=== PATIENT | male | born 1965 | race Two or more races ===

== ENCOUNTER 2017-05-28 04:34 | Emergency (ER) | payer MEDICAID ==
[~2017-05-28] VITALS: Ht 157.5 cm; Wt 66.0 kg
[2017-05-28] MEDS ORDERED: CLONIDINE 0.1MG TABLET PO ONE (09:30)
[2017-05-28] MEDS ORDERED: MORPHINE SULFATE 10 MG/ML CPJ IM ONE (09:30)
[2017-05-28] MEDS ORDERED: ONDANSETRON 4MG ODT PO ONE (09:30)
[2017-05-28 11:45] VITALS: BP 159/81
== END 2017-05-28 11:17 | disposition home or self-care (01) ==
LOC: ER 04:34
DX: S40.011A Contusion of right shoulder, initial encounter (principal); I16.0 Hypertensive urgency; I10 Essential (primary) hypertension; E11.9 Type 2 diabetes mellitus without complications; W19.XXXA Unspecified fall, initial encounter; Y93.89 Activity, other specified; Y99.8 Other external cause status; Y92.89 Other specified places as the place of occurrence of the external cause
CPT/HCPCS: 73030; 96372; 99284; J2270; Q0162

== ENCOUNTER 2018-02-20 14:49 | Emergency (ER) | payer MEDICAID ==
[~2018-02-20] VITALS: Ht 160 cm; Wt 65.0 kg
[2018-02-20] MEDS ORDERED: CLONIDINE 0.2MG TABLET PO ONE (21:30)
[2018-02-20 22:05] LABS: BASOPHILS % 0.6 % (0.0-2.0); EOSINOPHILS % 2.2 % (0.0-5.0); HEMATOCRIT. 29.6 % (42.0-52.0); HEMOGLOBIN. 10.1 g/dL (14.0-18.0); LYMPHOCYTES % 16.4 % (20.0-50.0); MEAN CORPUSCULAR HEMOGLOBIN 29.6 pg (28.0-32.0); MEAN CORPUSCULAR VOLUME 86.9 fL (80.0-94.0); MEAN PLATELET VOLUME 7.1 fl (7.4-10.4); NEUTROPHILS % 74.8 % (40.0-76.0); PLATELET 405 x1000/uL (130-400); RED CELL DISTRIBUTION WIDTH 13.1 % (11.6-14.6)
[2018-02-20 22:12] LABS: CHLORIDE 105 mEq/L (98-107)
[2018-02-20 22:16] LABS: ETHANOL BLOOD < 10 mg/dL
[2018-02-20 23:43] VITALS: BP 133/72
== END 2018-02-20 23:50 | disposition home or self-care (01) ==
LOC: ER 16:56
DX: N28.9 Disorder of kidney and ureter, unspecified (principal); E11.65 Type 2 diabetes mellitus with hyperglycemia; R79.89 Other specified abnormal findings of blood chemistry; I10 Essential (primary) hypertension
CPT/HCPCS: 36415; 80053; 82962; 83880; 84484; 85025; 93005; 99285; G0482; Z7610

== ENCOUNTER 2018-03-14 20:50 | Inpatient (IN) | payer MEDICAID ==
[~2018-03-14] VITALS: Ht 157.5 cm; Wt 66.2 kg
[2018-03-14 22:52] LABS: BASOPHILS % 0.9 % (0.0-2.0); EOSINOPHILS % 3.5 % (0.0-5.0); HEMATOCRIT. 26.9 % (42.0-52.0); HEMOGLOBIN. 9.5 g/dL (14.0-18.0); LYMPHOCYTES % 13.9 % (20.0-50.0); MEAN CORPUSCULAR VOLUME 87.6 fL (80.0-94.0); MEAN PLATELET VOLUME 7.1 fl (7.4-10.4); MONOCYTES % 7.7 % (2.0-8.0); PLATELET 403 x1000/uL (130-400); RED BLOOD CELL COUNT 3.07 mill/uL (4.7-6.1); RED CELL DISTRIBUTION WIDTH 12.8 % (11.6-14.6)
[2018-03-14 23:01] LABS: D-DIMER 0.33 mg/L FEU (<0.50); PROTHROMBIN TIME 9.6 sec (9.1-11.1)
[2018-03-14 23:03] LABS: CHLORIDE 105 mEq/L (98-107)
[2018-03-14 23:11] LABS: CLARITY URINE CLEAR (CLEAR); COLOR URINE YELLOW (YELLOW); KETONES URINE NEGATIVE (NEGATIVE); LEUKOCYTE ESTERASE URINE NEGATIVE (NEGATIVE); NITRITE URINE NEGATIVE (NEGATIVE); OCCULT BLOOD URINE NEGATIVE (NEGATIVE); PH URINE 6.5 (4.5-8.0); PROTEIN URINE 2+ (NEGATIVE); SPECIFIC GRAVITY URINE 1.012 (1.005-1.030); UROBILINOGEN URINE 0.2 E.U./dL (0.2-1.0)
[2018-03-14] MEDS ORDERED: ASPIRIN 81MG TABLET PO ONE (23:30)
[2018-03-14] MEDS ORDERED: SODIUM CHLORIDE 0.9% 1,000 ML IV SCH (23:53)
[2018-03-15] MEDS ORDERED: ONDANSETRON HCL 4MG/2ML INJ IV PRN
[2018-03-15] MEDS ORDERED: IPRATROPIUM/ALBUTEROL 0.5-3(2.5)MG/3ML NEB INH PRN
[2018-03-15] MEDS ORDERED: HYDROCODONE/ACETAMINOPHEN 5/325MG TABLET PO PRN
[2018-03-15] MEDS ORDERED: DOCUSATE SODIUM 100MG CAPSULE PO PRN
[2018-03-15] MEDS ORDERED: CLONIDINE 0.1MG TABLET PO PRN
[2018-03-15] MEDS ORDERED: ACETAMINOPHEN 325MG TABLET PO PRN
[2018-03-15 06:26] LABS: BASOPHILS % 0.9 % (0.0-2.0); EOSINOPHILS % 4.1 % (0.0-5.0); HEMATOCRIT. 27.6 % (42.0-52.0); HEMOGLOBIN. 9.7 g/dL (14.0-18.0); MEAN CORPUSCULAR HEMOGLOBIN 30.6 pg (28.0-32.0); MEAN CORPUSCULAR VOLUME 87.5 fL (80.0-94.0); MEAN PLATELET VOLUME 7.7 fl (7.4-10.4); MONOCYTES % 5.9 % (2.0-8.0); NEUTROPHILS % 74.1 % (40.0-76.0); PLATELET 412 x1000/uL (130-400); RED BLOOD CELL COUNT 3.16 mill/uL (4.7-6.1); RED CELL DISTRIBUTION WIDTH 12.9 % (11.6-14.6)
[2018-03-15 06:43] LABS: CREATINE KINASE 121 IU/L (39-308); CREATINE KINASE MB FRACTION < 1.0 ng/mL (0.5-3.6); HDL CHOLESTEROL 31 mg/dL (40-59); LDL CHOLESTEROL 47 mg/dL (5-100)
[2018-03-15] MEDS ORDERED: DEXTROSE 50% WATER 50ML SYRINGE IV PRN (08:45)
[2018-03-15] MEDS: BLOOD SUGAR DIAGNOSTIC STRIP TEST SCH ×4 (09:10→20:05)
[2018-03-15] MEDS: INSULIN LISPRO 100 UNITS/ML SUBCUT SCH ×3 (09:14→20:05)
[2018-03-15 12:57] LABS: *AMPHETAMINES SCREEN URINE NEGATIVE (NEGATIVE); *BARBITURATES SCREEN URINE NEGATIVE (NEGATIVE); *BENZODIAZEPINES SCREEN URINE NEGATIVE (NEGATIVE); *COCAINE SCREEN URINE NEGATIVE (NEGATIVE); METHADONE URINE SCREEN NEGATIVE (NEGATIVE)
[2018-03-15 12:58] LABS: CANNABINOID URINE SCREEN NEGATIVE (NEGATIVE); OPIATES URINE SCREEN NEGATIVE (NEGATIVE); PHENCYCLIDINE URINE SCREEN NEGATIVE (NEGATIVE)
[2018-03-15 17:21] LABS: CREATINE KINASE 89 IU/L (39-308); CREATINE KINASE MB FRACTION < 1.0 ng/mL (0.5-3.6)
[2018-03-15 17:30] VITALS: BP 164/77
[2018-03-15 17:45] VITALS: BP 164/77
[2018-03-15] MEDS ORDERED: AMLO10TA80 PO (18:13)
[2018-03-15] MEDS ORDERED: CARV6.2548 PO (18:13)
[2018-03-15] MEDS ORDERED: ATOR40TA70 PO (18:13)
[2018-03-15] MEDS ORDERED: HYDR-4135 PO (18:13)
[2018-03-15] MEDS ORDERED: PNEUMOCOCCAL 23-VAL P-SAC VAC 0.5 ML IM ONE (18:15)
[2018-03-15] MEDS ORDERED: INFLUENZA VIRUS VACCINE(AFLURIA) 0.5ML SYR IM ONE (18:15)
[2018-03-15] MEDS: ASPIRIN 81MG EC TABLET PO SCH (18:20)
[2018-03-15] MEDS: FUROSEMIDE 40MG/4ML VIAL IVP SCH (18:20)
[2018-03-15] MEDS: CARVEDILOL 6.25 MG TABLET PO SCH (18:20)
[2018-03-15 20:00] VITALS: BP 145/73
[2018-03-15] MEDS: AMLODIPINE 5MG TABLET PO SCH (20:27)
[2018-03-16] VITALS: BP 143/60
[2018-03-16 04:00] VITALS: BP 138/70
[2018-03-16] MEDS: BLOOD SUGAR DIAGNOSTIC STRIP TEST SCH ×2 (05:45→11:58)
[2018-03-16] MEDS: INSULIN LISPRO 100 UNITS/ML SUBCUT SCH ×2 (05:45→13:31)
[2018-03-16 07:08] LABS: HEMOGLOBIN 9.1 g/dL (14.0-18.0); MEAN CORPUSCULAR HEMOGLOBIN 30.6 pg (28.0-32.0); PLATELET 382 x1000/uL (130-400); RED BLOOD CELL COUNT 2.99 mill/uL (4.7-6.1); RED CELL DISTRIBUTION WIDTH 12.7 % (11.6-14.6)
[2018-03-16 08:00] VITALS: BP 127/68
[2018-03-16] MEDS: AMLODIPINE 5MG TABLET PO SCH (09:11)
[2018-03-16] MEDS: CARVEDILOL 6.25 MG TABLET PO SCH (09:11)
[2018-03-16] MEDS: ASPIRIN 81MG EC TABLET PO SCH (09:11)
[2018-03-16] MEDS: FUROSEMIDE 40MG/4ML VIAL IVP SCH (09:11)
[2018-03-16 12:00] VITALS: BP 128/67
[2018-03-16] MEDS ORDERED: HYDR-4135 MT (12:03)
[2018-03-16] MEDS ORDERED: CARV6.2548 MT (12:04)
[2018-03-16 16:00] VITALS: BP 159/79
[2018-03-16] MEDS ORDERED: DILTIAZEM HCL 60MG TABLET PO SCH (18:00)
[2018-03-16 18:10] VITALS: BP 143/70
== END 2018-03-16 19:30 | disposition home or self-care (01) | DRG 194 ==
LOC: ER 20:50 → EDBEDREQ 23:54 → EDBEDREQTM 23:54 → ENRESERV 03-15 15:58 → 8WST 03-15 18:01
PROVIDERS: ADMIT Internal Medicine; ATTEND Internal Medicine
DX: I13.0 Hypertensive heart and chronic kidney disease with heart failure and stage 1 through stage 4 chronic kidney disease, or unspecified chronic kidney disease (principal); N17.9 Acute kidney failure, unspecified; E11.22 Type 2 diabetes mellitus with diabetic chronic kidney disease; I27.20 Pulmonary hypertension, unspecified; E44.1 Mild protein-calorie malnutrition; D64.9 Anemia, unspecified; N18.2 Chronic kidney disease, stage 2 (mild); I50.30 Unspecified diastolic (congestive) heart failure; Z79.4 Long term (current) use of insulin; Z68.26 Body mass index [BMI] 26.0-26.9, adult
CPT/HCPCS: 36415; 71045; 76770; 80048; 80061; 80305; 82550; 82553; 82962; 83036; 83735; 83880; 84443; 84484; 85027; 85379; 93005; 93306; 93970; 99285; J1815; J1940; J7030

== ENCOUNTER 2019-07-08 07:12 | Inpatient (IN) | payer MEDICAID ==
[~2019-07-08] VITALS: Ht 151.9 cm; Wt 61.7 kg
[~2019-07-08 07:12] MED LIST: ASPI-1160 PO; ATOR20TA PO; DILT60TA35 PO; FURO40TA5 PO; HYDR-4135 MT
[2019-07-08 08:43] LABS: BASOPHILS % 1.2 % (0.0-2.0); EOSINOPHILS % 3.4 % (0.0-5.0); HEMATOCRIT. 35.1 % (42.0-52.0); HEMOGLOBIN. 11.7 g/dL (14.0-18.0); LYMPHOCYTES % 10.4 % (20.0-50.0); MEAN CORPUSCULAR HEMOGLOBIN 31.2 pg (28.0-32.0); MEAN CORPUSCULAR VOLUME 93.9 fL (80.0-94.0); MEAN PLATELET VOLUME 6.7 fl (7.4-10.4); MONOCYTES % 5.2 % (2.0-8.0); NEUTROPHILS % 79.8 % (40.0-76.0); PLATELET 349 x1000/uL (130-400); RED BLOOD CELL COUNT 3.74 mill/uL (4.7-6.1); RED CELL DISTRIBUTION WIDTH 15.1 % (11.6-14.6)
[2019-07-08 08:49] LABS: CHLORIDE 103 mEq/L (98-107)
[2019-07-08] MEDS ORDERED: SODIUM BICARBONATE 8.4% 1 MEQ/ML 50ML SYR IV ONE (09:30)
[2019-07-08] MEDS ORDERED: ALBUTEROL (0.083%) 2.5MG/3ML NEB HHN ONE (09:30)
[2019-07-08] MEDS ORDERED: DEXTROSE 50% WATER 50ML SYRINGE IV ONE (09:30)
[2019-07-08] MEDS ORDERED: INSULIN REGULAR (HUMULIN R) 300UNITS/3ML IV ONE (09:30)
[2019-07-08] MEDS ORDERED: CALCIUM GLUCONATE 100MG/ML 10ML VIAL IV ONE (09:30)
[2019-07-08] MEDS: HYDRALAZINE 20MG/ML VIAL IV PRN (15:21)
[2019-07-08] MEDS ORDERED: ACETAMINOPHEN 325MG TABLET PO PRN (16:00)
[2019-07-08] MEDS ORDERED: IPRATROPIUM/ALBUTEROL 0.5-3(2.5)MG/3ML NEB HHN PRN (16:00)
[2019-07-08] MEDS ORDERED: ONDANSETRON HCL 4MG/2ML INJ IV PRN (16:00)
[2019-07-08] MEDS ORDERED: HYDROCODONE/ACETAMINOPHEN 5/325MG TABLET PO PRN (16:00)
[2019-07-08] MEDS: CLONIDINE 0.1MG TABLET PO PRN (16:46)
[2019-07-08] MEDS ORDERED: ASPIRIN 81MG TABLET PO NR (17:00)
[2019-07-08] MEDS: ENOXAPARIN 30MG/0.3ML SYR SUBCUT SCH (17:34)
[2019-07-08] MEDS ORDERED: HYDRALAZINE HCL 50MG TABLET PO NR (18:30)
[2019-07-08] MEDS: METOPROLOL TARTRATE 25MG TABLET PO SCH (19:35)
[2019-07-08 22:00] VITALS: BP 180/94
[2019-07-08 23:01] VITALS: BP 169/89
[2019-07-08 23:05] VITALS: BP 180/94
[2019-07-08 23:16] VITALS: BP 172/98
[2019-07-08 23:31] VITALS: BP 144/78
[2019-07-08] MEDS: ATORVASTATIN CALCIUM 40MG TABLET PO SCH (23:42)
[2019-07-09] VITALS (32 sets, daily range): BP systolic 100–188; BP diastolic 62–105
[2019-07-09] MEDS ORDERED: HYDRALAZINE HCL 50MG TABLET PO SCH (06:00)
[2019-07-09 07:00] LABS: EOSINOPHILS % 6.3 % (0.0-5.0); HEMATOCRIT. 32.1 % (42.0-52.0); LYMPHOCYTES % 19.6 % (20.0-50.0); MEAN CORPUSCULAR HEMOGLOBIN 32.2 pg (28.0-32.0); MEAN CORPUSCULAR VOLUME 94.1 fL (80.0-94.0); MEAN PLATELET VOLUME 6.9 fl (7.4-10.4); MONOCYTES % 7.4 % (2.0-8.0); NEUTROPHILS % 65.7 % (40.0-76.0); PLATELET 326 x1000/uL (130-400); RED BLOOD CELL COUNT 3.41 mill/uL (4.7-6.1); RED CELL DISTRIBUTION WIDTH 15.3 % (11.6-14.6)
[2019-07-09 07:22] LABS: CHLORIDE 111 mEq/L (98-107)
[2019-07-09] MEDS: METOPROLOL TARTRATE 25MG TABLET PO SCH (07:28)
[2019-07-09 07:31] LABS: HDL CHOLESTEROL 34 mg/dL (40-59)
[2019-07-09 07:32] LABS: PHOSPHORUS 3.7 mg/dL (2.5-4.9)
[2019-07-09 07:33] LABS: CREATINE KINASE 55 IU/L (39-308); LDL CHOLESTEROL 98 mg/dL (5-100); T4 FREE 1.18 ng/dL (0.76-1.46)
[2019-07-09] MEDS: CLONIDINE 0.1MG TABLET PO PRN (11:11)
[2019-07-09] MEDS: ASPIRIN 81MG TABLET PO SCH (12:12)
[2019-07-09] MEDS ORDERED: METOPROLOL TARTRATE 25MG TABLET PO NR (12:30)
[2019-07-09] MEDS: LISINOPRIL 40MG TABLET PO SCH (14:25)
[2019-07-09] MEDS ORDERED: HEPARIN SODIUM 1,000 UNIT/1ML VIAL IV SCH (16:15)
[2019-07-09] MEDS: ENOXAPARIN 30MG/0.3ML SYR SUBCUT SCH (18:38)
[2019-07-09] MEDS: ATORVASTATIN CALCIUM 40MG TABLET PO SCH (20:44)
[2019-07-09] MEDS: MINOXIDIL 2.5MG TABLET PO SCH (20:45)
[2019-07-09] MEDS: METOPROLOL TARTRATE 50MG TABLET PO SCH (20:45)
[2019-07-10 04:29] VITALS: BP 113/67
[2019-07-10 05:30] VITALS: BP 156/81
[2019-07-10 07:01] LABS: BASOPHILS % 1.2 % (0.0-2.0); EOSINOPHILS % 9.4 % (0.0-5.0); HEMATOCRIT. 32.9 % (42.0-52.0); LYMPHOCYTES % 20.2 % (20.0-50.0); MEAN CORPUSCULAR HEMOGLOBIN 31.1 pg (28.0-32.0); MEAN CORPUSCULAR VOLUME 93.5 fL (80.0-94.0); MONOCYTES % 9.5 % (2.0-8.0); NEUTROPHILS % 59.7 % (40.0-76.0); PLATELET 300 x1000/uL (130-400); RED BLOOD CELL COUNT 3.52 mill/uL (4.7-6.1)
[2019-07-10 08:00] VITALS: BP_SYST 112; BP_SYST 172; BP_DIAS 87
[2019-07-10 08:01] LABS: PHOSPHORUS 4.5 mg/dL (2.5-4.9)
[2019-07-10] MEDS: METOPROLOL TARTRATE 50MG TABLET PO SCH (09:01)
[2019-07-10] MEDS: MINOXIDIL 2.5MG TABLET PO SCH (09:02)
[2019-07-10] MEDS: LISINOPRIL 40MG TABLET PO SCH (09:02)
[2019-07-10] MEDS: ASPIRIN 81MG TABLET PO SCH (09:02)
[2019-07-10] MEDS ORDERED: REGADENOSON 0.4 MG/5 ML IV NR (09:30)
[2019-07-10 12:00] VITALS: BP 171/89
[2019-07-10] MEDS ORDERED: REGADENOSON 0.4 MG/5 ML IV ONE (12:26)
[2019-07-10 16:00] VITALS: BP 179/89
[2019-07-10] MEDS: HYDRALAZINE 20MG/ML VIAL IV PRN (16:07)
[2019-07-10] MEDS ORDERED: SODIUM POLYSTYRENE SULFONATE 15 G/60 ML BOT PO NR (17:00)
[2019-07-10] MEDS: ENOXAPARIN 30MG/0.3ML SYR SUBCUT SCH (18:00)
[2019-07-10] MEDS ORDERED: MINOXIDIL 2.5MG TABLET PO SCH (21:00)
== END 2019-07-10 19:23 | disposition home or self-care (01) | DRG 199 ==
LOC: ER 07:12 → 3WST 10:07 → EDBEDREQ 10:14 → EDBEDREQSVC 16:07 → ENRESERV 21:11
PROVIDERS: ADMIT Internal Medicine; ATTEND Internal Medicine
PROC: 5A1D70Z Performance of Urinary Filtration, Intermittent, Less than 6 Hours Per Day (ICD-10-PCS; 2019-07-08)
PROC: 5A1D70Z Performance of Urinary Filtration, Intermittent, Less than 6 Hours Per Day (ICD-10-PCS; principal; 2019-07-09)
DX: I16.0 Hypertensive urgency (principal); E11.22 Type 2 diabetes mellitus with diabetic chronic kidney disease; I27.20 Pulmonary hypertension, unspecified; N18.6 End stage renal disease; E87.5 Hyperkalemia; I07.1 Rheumatic tricuspid insufficiency; I13.2 Hypertensive heart and chronic kidney disease with heart failure and with stage 5 chronic kidney disease, or end stage renal disease; F41.9 Anxiety disorder, unspecified; R07.89 Other chest pain; I50.42 Chronic combined systolic (congestive) and diastolic (congestive) heart failure; R07.81 Pleurodynia; E78.5 Hyperlipidemia, unspecified; D64.9 Anemia, unspecified; Z79.82 Long term (current) use of aspirin; Z99.2 Dependence on renal dialysis; Z79.899 Other long term (current) drug therapy; Z87.891 Personal history of nicotine dependence
CPT/HCPCS: 36415; 71045; 78452; 78582; 80048; 80053; 80061; 82550; 82962; 83735; 83880; 84100; 84439; 84443; 84484; 85025; 87804; 93005; 93017; 93306; 93970; 94640; 99291; A9500; A9558; J0360; J0610; J1644; J1650; J1815; J2785; J3490

== ENCOUNTER 2021-12-09 19:53 | Emergency (ER) | payer MEDICAID ==
[~2021-12-09] VITALS: Ht 160 cm; Wt 65.0 kg
[2021-12-09] MEDS ORDERED: AMOXICILLIN/POTASSIUM CLAVULANATE 875/125MG TAB PO ONE (22:15)
[2021-12-09] MEDS ORDERED: TETANUS, DIPHTHERIA, PERTUSSIS VAC/PF 0.5ML (>10YR OLD) IM ONE (22:15)
[2021-12-09] MEDS ORDERED: HYDROCODONE/ACETAMINOPHEN 10/325MG TABLET PO NR (22:20)
[2021-12-09] MEDS ORDERED: DILTIAZEM HCL 120MG CAPSULE CD 24HR PO NR (22:30)
[2021-12-09] MEDS ORDERED: AMOX1TAB16 MT (22:56)
[2021-12-09 23:55] VITALS: BP 186/85
== END 2021-12-10 00:02 | disposition home or self-care (01) ==
LOC: ER 19:53
DX: S51.852A Open bite of left forearm, initial encounter (principal); I10 Essential (primary) hypertension; E11.9 Type 2 diabetes mellitus without complications; Z98.890 Other specified postprocedural states; W54.0XXA Bitten by dog, initial encounter; Y93.89 Activity, other specified; Y92.89 Other specified places as the place of occurrence of the external cause; Y99.8 Other external cause status
CPT/HCPCS: 73090; 90471; 90715; 99284

== ENCOUNTER 2023-05-04 09:38 | Inpatient (IN) | payer MEDICARE, MEDICAID ==
[~2023-05-04] VITALS: Ht 167.6 cm; Wt 68.0 kg
[2023-05-04] VITALS (10 sets, daily range): BP systolic 148–206; BP diastolic 67–93; PULSE 93–99; RESP 14–20; TEMP 98–98.7
[~2023-05-04 09:38] MED LIST changes: +AMOX1TAB16 MT; +ATOR20TA65 PO; +ATRO2DRO6 RIGHTEYE; +CALC667C PO; +DILT240C49 PO; +GABA-529 PO; +GLIP10TA10 PO; +METO-385 PO; +MINO10TA2 PO; +PRED5DRO22 RIGHTEYE
[2023-05-04] MEDS ORDERED: HYDRALAZINE 20MG/ML VIAL IV ONE (10:15)
[2023-05-04 10:53] LABS: EOSINOPHILS % 5.1 % (0.0-5.0); HEMOGLOBIN. 7.9 g/dL (14.0-18.0); MEAN CORPUSCULAR HEMOGLOBIN 31.9 pg (28.0-32.0); MEAN CORPUSCULAR HGB CONC 34.2 g/dL (31.0-37.0); MEAN PLATELET VOLUME 7.4 fl (7.4-10.4); MONOCYTES % 8.2 % (2.0-8.0); NEUTROPHILS % 75.7 % (40.0-76.0); PLATELET 179 x1000/uL (130-400); RED BLOOD CELL COUNT 2.47 mill/uL (4.7-6.1); RED CELL DISTRIBUTION WIDTH 15.5 % (11.6-14.6); WHITE BLOOD COUNT 8.5 x1000/uL (4.5-11.0)
[2023-05-04 11:34] LABS: ALANINE AMINOTRANSFERASE 42 IU/L (10-49); ALBUMIN 4.4 g/dL (3.2-4.8); ASPARTATE AMINOTRANSFERASE 33 IU/L (<34); BILIRUBIN TOTAL 0.3 mg/dL (0.1-1.0); CALCIUM 9.2 mg/dL (8.7-10.4); CARBON DIOXIDE 30 mEq/L (21-32); CHLORIDE 97 mEq/L (98-107); GLUCOSE 137 mg/dL (70-105); POTASSIUM 5.9 mEq/L (3.5-5.1); PROTEIN TOTAL 7.9 g/dL (6.0-8.3); SODIUM 135 mEq/L (136-145); UREA NITROGEN BLOOD 36 mg/dL (9-23)
[2023-05-04 11:38] LABS: CREATININE 6.5 mg/dL (0.6-1.3); TROPONIN I HIGH SENSITIVITY 328 ng/L (3.0-53)
[2023-05-04] MEDS ORDERED: SODIUM POLYSTYRENE SULFONATE 15 G/60 ML BOT PO NR (12:45)
[2023-05-04] MEDS ORDERED: IPRATROPIUM/ALBUTEROL 0.5-3(2.5)MG/3ML NEB NEB PRN (14:30)
[2023-05-04] MEDS ORDERED: MORPHINE SULFATE 2 MG/ML CPJ (NOT FOR IM USE) IV PRN (14:30)
[2023-05-04] MEDS ORDERED: ONDANSETRON HCL 4MG/2ML INJ IV PRN (14:30)
[2023-05-04] MEDS ORDERED: LORAZEPAM 2MG/ML CPJ IV PRN (14:30)
[2023-05-04] MEDS ORDERED: ACETAMINOPHEN 650MG/20.3ML UDC GT PRN (14:30)
[2023-05-04] MEDS ORDERED: HYDROCODONE/ACETAMINOPHEN 5/325MG TABLET PO PRN (14:30)
[2023-05-04] MEDS ORDERED: METOPROLOL TARTRATE 25MG TABLET PO SCH (14:30)
[2023-05-04] MEDS ORDERED: DIPHENHYDRAMINE 50MG/ML VIAL IV PRN (14:30)
[2023-05-04] MEDS: THIAMINE HCL 100MG TABLET PO SCH (14:53)
[2023-05-04] MEDS: ENOXAPARIN 30MG/0.3ML SYR SUBCUT SCH (14:56)
[2023-05-04] MEDS ORDERED: NALOXONE HCL 0.4MG/ML VIAL IV PRN (15:00)
[2023-05-04 15:15] LABS: HEPATITIS A AB IGM NEGATIVE (Negative); HEPATITIS B CORE AB IGM NEGATIVE (Negative); HEPATITIS B SURFACE ANTIGEN NEGATIVE (Negative); HEPATITIS C AB NON REACTIVE (Neg) (Negative)
[2023-05-04] MEDS: MINOXIDIL 2.5MG TABLET PO SCH (18:27)
[2023-05-04] MEDS ORDERED: EPOETIN ALFA 4000UNITS/ML VIAL SUBCUT SCH (21:00)
[2023-05-04] MEDS: METOPROLOL TARTRATE 25MG TABLET PO SCH (23:26)
[2023-05-04 23:43] LABS: CREATINE KINASE 334 IU/L (46-171)
[2023-05-05] VITALS (20 sets, daily range): BP systolic 132–185; BP diastolic 51–88; PULSE 74–94; RESP 13–22; TEMP 97.5–99
[2023-05-05 00:23] LABS: TROPONIN I HIGH SENSITIVITY 339 ng/L (3.0-53)
[2023-05-05 09:35] LABS: BASOPHILS % 1.4 % (0.0-2.0); EOSINOPHILS % 6.9 % (0.0-5.0); LYMPHOCYTES % 14.4 % (20.0-50.0); MEAN CORPUSCULAR HEMOGLOBIN 31.3 pg (28.0-32.0); MEAN CORPUSCULAR VOLUME 92.1 fL (80.0-94.0); NEUTROPHILS % 67.3 % (40.0-76.0); PLATELET 159 x1000/uL (130-400); RED BLOOD CELL COUNT 2.25 mill/uL (4.7-6.1); RED CELL DISTRIBUTION WIDTH 14.9 % (11.6-14.6); WHITE BLOOD COUNT 5.8 x1000/uL (4.5-11.0)
[2023-05-05 09:41] LABS: HEMATOCRIT. 20.7 % (42.0-52.0)
[2023-05-05] MEDS: METOPROLOL TARTRATE 25MG TABLET PO SCH ×2 (11:34→21:00)
[2023-05-05] MEDS: LOSARTAN 50 MG TABLET PO SCH (11:34)
[2023-05-05] MEDS: ASPIRIN 81MG EC TABLET PO SCH (11:36)
[2023-05-05] MEDS: MINOXIDIL 2.5MG TABLET PO SCH ×2 (11:36→18:14)
[2023-05-05] MEDS: AMLODIPINE 10MG TABLET PO SCH (11:36)
[2023-05-05] MEDS: THIAMINE HCL 100MG TABLET PO SCH (11:37)
[2023-05-05] MEDS ORDERED: IRON SUCROSE COMPLEX 100 MG/5 ML ML IV SCH (12:00)
[2023-05-05 12:18] LABS: CALCIUM 9.3 mg/dL (8.7-10.4); CARBON DIOXIDE 31 mEq/L (21-32); CHLORIDE 102 mEq/L (98-107); CREATINE KINASE 224 IU/L (46-171); GLUCOSE 77 mg/dL (70-105); PHOSPHORUS 2.4 mg/dL (2.5-4.9); SODIUM 142 mEq/L (136-145); UREA NITROGEN BLOOD 13 mg/dL (9-23)
[2023-05-05 12:29] LABS: TROPONIN I HIGH SENSITIVITY 389 ng/L (3.0-53)
[2023-05-05 12:37] LABS: POTASSIUM 3.2 mEq/L (3.5-5.1)
[2023-05-05 12:40] LABS: CREATININE 2.7 mg/dL (0.6-1.3)
[2023-05-05] MEDS: ENOXAPARIN 30MG/0.3ML SYR SUBCUT SCH (15:00)
[2023-05-05] MEDS ORDERED: CLONIDINE 0.1MG TABLET PO PRN (21:00)
[2023-05-06] VITALS: BP 136/105; PULSE 68; RESP 21; TEMP 99
[2023-05-06 04:00] VITALS: BP 128/47; PULSE 70; RESP 14; TEMP 98.8
[2023-05-06 07:06] LABS: EOSINOPHILS % 9.2 % (0.0-5.0); HEMATOCRIT. 23.9 % (42.0-52.0); HEMOGLOBIN. 8.3 g/dL (14.0-18.0); LYMPHOCYTES % 20.3 % (20.0-50.0); MEAN CORPUSCULAR HEMOGLOBIN 31.2 pg (28.0-32.0); MEAN CORPUSCULAR HGB CONC 34.6 g/dL (31.0-37.0); MEAN CORPUSCULAR VOLUME 90.2 fL (80.0-94.0); MEAN PLATELET VOLUME 7.7 fl (7.4-10.4); MONOCYTES % 12.6 % (2.0-8.0); NEUTROPHILS % 54.9 % (40.0-76.0); PLATELET 155 x1000/uL (130-400); RED BLOOD CELL COUNT 2.65 mill/uL (4.7-6.1); RED CELL DISTRIBUTION WIDTH 14.7 % (11.6-14.6); WHITE BLOOD COUNT 5.5 x1000/uL (4.5-11.0)
[2023-05-06 07:31] LABS: TROPONIN I HIGH SENSITIVITY 331 ng/L (3.0-53)
[2023-05-06 08:00] VITALS: BP 128/47; PULSE 76; RESP 26; TEMP 99
[2023-05-06] MEDS: LOSARTAN 50 MG TABLET PO SCH (09:00)
[2023-05-06] MEDS: THIAMINE HCL 100MG TABLET PO SCH (09:01)
[2023-05-06] MEDS: ASPIRIN 81MG EC TABLET PO SCH (09:01)
[2023-05-06] MEDS: AMLODIPINE 10MG TABLET PO SCH (09:01)
[2023-05-06] MEDS: METOPROLOL TARTRATE 25MG TABLET PO SCH (09:02)
[2023-05-06] MEDS: MINOXIDIL 2.5MG TABLET PO SCH (09:02)
[2023-05-06] MEDS ORDERED: AMLO5TAB4 MT (10:10)
[2023-05-06 10:55] VITALS: BP 147/65; PULSE 70; TEMP 98.2; O2SAT 98
[2023-05-06 11:45] LABS: CALCIUM 8.8 mg/dL (8.7-10.4); CARBON DIOXIDE 31 mEq/L (21-32); CHLORIDE 101 mEq/L (98-107); GLUCOSE 77 mg/dL (70-105); PHOSPHORUS 4.7 mg/dL (2.5-4.9); POTASSIUM 4.2 mEq/L (3.5-5.1); SODIUM 140 mEq/L (136-145)
[2023-05-06 12:00] VITALS: BP 146/82; PULSE 75; RESP 16; TEMP 98
[2023-05-06 12:06] LABS: CREATININE 4.6 mg/dL (0.6-1.3)
[2023-05-06 12:55] LABS: UREA NITROGEN BLOOD 28 mg/dL (9-23)
== END 2023-05-06 11:40 | disposition home or self-care (01) | DRG 304 ==
LOC: ER 09:38 → 3WST 14:17 → EDBEDREQ 14:39
PROVIDERS: ADMIT Internal Medicine Nephrology; ATTEND Internal Medicine Nephrology
PROC: 5A1D70Z Performance of Urinary Filtration, Intermittent, Less than 6 Hours Per Day (ICD-10-PCS; principal; 2023-05-04)
PROC: 5A1D70Z Performance of Urinary Filtration, Intermittent, Less than 6 Hours Per Day (ICD-10-PCS; 2023-05-05)
PROC: 30233N1 Transfusion of Nonautologous Red Blood Cells into Peripheral Vein, Percutaneous Approach (ICD-10-PCS; 2023-05-05)
DX: I16.0 Hypertensive urgency (principal); N18.6 End stage renal disease; I12.0 Hypertensive chronic kidney disease with stage 5 chronic kidney disease or end stage renal disease; E78.00 Pure hypercholesterolemia, unspecified; E11.22 Type 2 diabetes mellitus with diabetic chronic kidney disease; D63.8 Anemia in other chronic diseases classified elsewhere; Z99.2 Dependence on renal dialysis; Z79.4 Long term (current) use of insulin
CPT/HCPCS: 36415; 71045; 80048; 80053; 82550; 82962; 83735; 83880; 84100; 84484; 85025; 86705; 86709; 86850; 86900; 86920; 87340; 90935; 93005; 99285; J0360; J0885; J1200; J1650; P9016

== ENCOUNTER 2023-07-24 07:45 | Inpatient (IN) | payer MEDICARE, MEDICAID ==
[~2023-07-24] VITALS: Ht 160 cm; Wt 60.8 kg
[2023-07-24] VITALS (14 sets, daily range): BP systolic 105–190; BP diastolic 62–87; PULSE 56–95; RESP 16–28; TEMP 97–98.8; O2SAT 96
[~2023-07-24 07:45] MED LIST changes: +AMLO5TAB4 MT; -FURO40TA5 PO; -HYDR-4135 MT; +HYDR50TA40 MT
[2023-07-24 08:15] LABS: BASOPHILS % 1.1 % (0.0-2.0); EOSINOPHILS % 5.3 % (0.0-5.0); HEMATOCRIT. 36.2 % (42.0-52.0); HEMOGLOBIN. 11.9 g/dL (14.0-18.0); LYMPHOCYTES % 9.9 % (20.0-50.0); MEAN CORPUSCULAR HEMOGLOBIN 31.9 pg (28.0-32.0); MEAN CORPUSCULAR VOLUME 96.6 fL (80.0-94.0); MEAN PLATELET VOLUME 7.5 fl (7.4-10.4); MONOCYTES % 5.7 % (2.0-8.0); PLATELET 233 x1000/uL (130-400); RED BLOOD CELL COUNT 3.74 mill/uL (4.7-6.1); RED CELL DISTRIBUTION WIDTH 15.6 % (11.6-14.6); WHITE BLOOD COUNT 9.5 x1000/uL (4.5-11.0)
[2023-07-24] MEDS: CALCIUM CHLORIDE 1GM/10ML SYR IV ONE (08:17)
[2023-07-24] MEDS: SODIUM BICARBONATE 8.4% 1 MEQ/ML 50ML SYR IV ONE (08:17)
[2023-07-24] MEDS: DEXTROSE 50% WATER 50ML SYRINGE IV ONE (08:17)
[2023-07-24] MEDS: INSULIN REGULAR (HUMULIN R) 300UNITS/3ML VIAL IV ONE (08:17)
[2023-07-24 08:25] LABS: ALANINE AMINOTRANSFERASE 75 IU/L (10-49); ALBUMIN 4.4 g/dL (3.2-4.8); ASPARTATE AMINOTRANSFERASE 116 IU/L (<34); BILIRUBIN TOTAL 0.4 mg/dL (0.1-1.0); CALCIUM 8.9 mg/dL (8.7-10.4); CARBON DIOXIDE 22 mEq/L (21-32); CHLORIDE 99 mEq/L (98-107); GLUCOSE 164 mg/dL (70-105); PROTEIN TOTAL 7.8 g/dL (6.0-8.3); SODIUM 132 mEq/L (136-145); UREA NITROGEN BLOOD 82 mg/dL (9-23)
[2023-07-24 08:35] LABS: TROPONIN I HIGH SENSITIVITY 373 ng/L (3.0-53)
[2023-07-24] MEDS: ALBUTEROL (0.083%) 2.5MG/3ML NEB HHN ONE (08:38)
[2023-07-24 08:54] LABS: CREATININE 10.6 mg/dL (0.6-1.3)
[2023-07-24] MEDS: ONDANSETRON HCL 4MG/2ML INJ IV ONE (09:00)
[2023-07-24] MEDS: SODIUM POLYSTYRENE SULFONATE 15 G/60 ML BOT PO NR (10:08)
[2023-07-24] MEDS ORDERED: DEXTROSE 50% WATER 50ML SYRINGE IV PRN (11:00)
[2023-07-24] MEDS ORDERED: ACETAMINOPHEN 325MG TABLET PO PRN ×2 (11:00)
[2023-07-24] MEDS ORDERED: ONDANSETRON HCL 4MG/2ML INJ IV PRN (11:00)
[2023-07-24] MEDS ORDERED: IPRATROPIUM/ALBUTEROL 0.5-3(2.5)MG/3ML NEB HHN PRN (11:00)
[2023-07-24] MEDS ORDERED: GUAIFENESIN 200MG/10ML SUGAR FREE UDC PO PRN (11:00)
[2023-07-24] MEDS ORDERED: DOCUSATE SODIUM 100MG CAPSULE PO PRN (11:00)
[2023-07-24] MEDS ORDERED: MAGNESIUM/ALUMINUM HYDROXIDE/SIMETHICONE 30ML UDC PO PRN (11:00)
[2023-07-24 12:02] LABS: PHOSPHORUS 6.3 mg/dL (2.5-4.9); POTASSIUM 5.4 mEq/L (3.5-5.1)
[2023-07-24] MEDS: BLOOD SUGAR DIAGNOSTIC STRIP TEST SCH (12:35)
[2023-07-24] MEDS: INSULIN LISPRO 100 UNITS/ML SUBCUT SCH (12:35)
[2023-07-24] MEDS: ENOXAPARIN 30MG/0.3ML SYR SUBCUT SCH (16:46)
[2023-07-24] MEDS: CLONIDINE 0.1MG TABLET PO PRN (16:46)
[2023-07-24] MEDS: FAMOTIDINE 20MG TABLET PO SCH (16:47)
[2023-07-24 16:49] LABS: CREATINE KINASE MB FRACTION 4.5 ng/mL (0.5-3.6)
[2023-07-24 16:58] LABS: HEPATITIS A AB IGM NEGATIVE (Negative); HEPATITIS B CORE AB IGM NEGATIVE (Negative); HEPATITIS B SURFACE ANTIGEN NEGATIVE (Negative); HEPATITIS C AB NON REACTIVE (Neg) (Negative)
[2023-07-24] MEDS: ATORVASTATIN CALCIUM 40MG TABLET ONE (21:07)
[2023-07-24] MEDS: ATORVASTATIN CALCIUM 40MG TABLET PO SCH (21:22)
[2023-07-24] MEDS: AMLODIPINE 10MG TABLET PO SCH (21:30)
[2023-07-24] MEDS: HYDRALAZINE HCL 25MG TABLET PO SCH (22:00)
[2023-07-24 22:16] LABS: CREATINE KINASE MB FRACTION 3.2 ng/mL (0.5-3.6)
[2023-07-25] VITALS (14 sets, daily range): BP systolic 114–198; BP diastolic 62–98; PULSE 62–77; RESP 16–20; TEMP 97.5–98.6; O2SAT 100
[2023-07-25 07:25] LABS: BASOPHILS % 1.9 % (0.0-2.0); EOSINOPHILS % 5.9 % (0.0-5.0); HEMATOCRIT. 33.5 % (42.0-52.0); HEMOGLOBIN. 11.4 g/dL (14.0-18.0); LYMPHOCYTES % 16.9 % (20.0-50.0); MEAN CORPUSCULAR HEMOGLOBIN 32.2 pg (28.0-32.0); MEAN CORPUSCULAR HGB CONC 33.9 g/dL (31.0-37.0); MEAN PLATELET VOLUME 7.6 fl (7.4-10.4); MONOCYTES % 7.7 % (2.0-8.0); NEUTROPHILS % 67.6 % (40.0-76.0); PLATELET 229 x1000/uL (130-400); RED BLOOD CELL COUNT 3.53 mill/uL (4.7-6.1); RED CELL DISTRIBUTION WIDTH 15.8 % (11.6-14.6); WHITE BLOOD COUNT 6.9 x1000/uL (4.5-11.0)
[2023-07-25 09:03] LABS: ALANINE AMINOTRANSFERASE 49 IU/L (10-49); ALBUMIN 4.3 g/dL (3.2-4.8); ASPARTATE AMINOTRANSFERASE 32 IU/L (<34); BILIRUBIN TOTAL 0.4 mg/dL (0.1-1.0); CARBON DIOXIDE 27 mEq/L (21-32); CHLORIDE 97 mEq/L (98-107); CHOLESTEROL 117 mg/dL (<200); GLUCOSE 83 mg/dL (70-105); HDL CHOLESTEROL 43 mg/dL (>55); LDL CHOLESTEROL 56 mg/dL (5-100); POTASSIUM 5.7 mEq/L (3.5-5.1); PROTEIN TOTAL 7.5 g/dL (6.0-8.3); SODIUM 132 mEq/L (136-145); THYROID STIMULATING HORMONE 2.57 uIU/mL (0.55-4.78); TRIGLYCERIDE 60 mg/dL (0-150); UREA NITROGEN BLOOD 56 mg/dL (9-23)
[2023-07-25] MEDS: ASPIRIN 81MG EC TABLET PO SCH (09:09)
[2023-07-25] MEDS: MINOXIDIL 2.5MG TABLET PO SCH (09:09)
[2023-07-25 09:13] LABS: CREATININE 9.2 mg/dL (0.6-1.3)
[2023-07-25 09:16] LABS: TROPONIN I HIGH SENSITIVITY 382 ng/L (3.0-53)
[2023-07-25] MEDS: MINOXIDIL 10MG TABLET PO SCH (14:34)
[2023-07-25] MEDS: HYDRALAZINE 20MG/ML VIAL IV PRN (14:34)
[2023-07-25] MEDS ORDERED: NIFE-33 PO (16:06)
[2023-07-25] MEDS ORDERED: CLONIDINE 0.2MG TABLET PO PRN (17:00)
[2023-07-25] MEDS: NIFEDIPINE XL 30MG TAB PO NR (17:08)
[2023-07-25] MEDS ORDERED: NIFEDIPINE XL 30MG TAB PO SCH (21:00)
[2023-07-25] MEDS ORDERED: MINOXIDIL 2.5MG TABLET PO SCH (21:00)
== END 2023-07-25 18:07 | disposition home or self-care (01) | DRG 640 ==
LOC: ER 07:45 → 7EST 09:59 → EDBEDREQ 10:01 → EDBEDREQTM 10:01
PROVIDERS: ADMIT Internal Medicine; ATTEND Internal Medicine
PROC: 5A1D70Z Performance of Urinary Filtration, Intermittent, Less than 6 Hours Per Day (ICD-10-PCS; principal; 2023-07-24)
PROC: 5A1D70Z Performance of Urinary Filtration, Intermittent, Less than 6 Hours Per Day (ICD-10-PCS; 2023-07-25)
DX: E87.5 Hyperkalemia (principal); I21.A1 Myocardial infarction type 2; J96.90 Respiratory failure, unspecified, unspecified whether with hypoxia or hypercapnia; N18.6 End stage renal disease; I13.2 Hypertensive heart and chronic kidney disease with heart failure and with stage 5 chronic kidney disease, or end stage renal disease; R00.1 Bradycardia, unspecified; I95.9 Hypotension, unspecified; E87.1 Hypo-osmolality and hyponatremia; I27.20 Pulmonary hypertension, unspecified; E11.649 Type 2 diabetes mellitus with hypoglycemia without coma; D63.8 Anemia in other chronic diseases classified elsewhere; I07.1 Rheumatic tricuspid insufficiency; E11.22 Type 2 diabetes mellitus with diabetic chronic kidney disease; I50.9 Heart failure, unspecified; Z99.2 Dependence on renal dialysis; I1A.0 Resistant hypertension; E78.5 Hyperlipidemia, unspecified; N28.9 Disorder of kidney and ureter, unspecified; F41.9 Anxiety disorder, unspecified; Z83.3 Family history of diabetes mellitus; Z82.49 Family history of ischemic heart disease and other diseases of the circulatory system; Z79.82 Long term (current) use of aspirin; Z86.73 Personal history of transient ischemic attack (TIA), and cerebral infarction without residual deficits; Z79.899 Other long term (current) drug therapy
CPT/HCPCS: 36415; 71045; 80053; 80061; 82550; 82553; 82962; 83036; 83735; 83880; 84100; 84132; 84439; 84443; 84484; 85025; 86705; 86709; 87340; 90935; 93005; 93970; 94644; 97162; 99291; J0360; J1650; J1815; J2405; J3490